=== PATIENT | female | born 1980 | race Caucasian/White ===

== ENCOUNTER 2023-10-30 01:21 | Emergency (ER) | payer OTHER, SELFPAY ==
[2023-10-30 01:27] VITALS: BP 126/87
--- NOTE | 2023-10-30 02:30 | ED.GENMED ---
Addendum entered and electronically signed by Kodi Macario DO 10/30/23 05:24:
Patient was seen in conjunction with the PA student. I have reviewed and agree with the history and treatment plan presented. On my independent physical exam, patient is awake, alert, and oriented x3, minimal acute distress. Heart is regular rate
rhythm. Lungs are clear to auscultation bilaterally without wheezes rales or rhonchi abdomen is soft and nontender. Oropharynx is clear with the exception of ulcers on the soft palate. There is also a lesion on the tongue. Uvula is midline.
Airway is patent. No stridor present.
Original Note:
History of Present Illness
<IJEOMA Sesay - Last Filed: 10/30/23 05:01>
General
Chief Complaint: Throat Problem
Source: patient
Exam Limitations: clinical condition
Time Seen by Provider: 10/30/23 01:59
Nursing documentation reviewed up to this point in time: agreed with
Travel History
Have you had any contact with someone who has COVID-19?: No
Do you have any symptoms of coronavirus? Fever > 100 degrees, chills, cough, shortness of breath, sore throat, loss of taste or smell, muscle aches, or headache?: Yes
Symptoms:: fever
History of Present Illness
History of Present Illness:
This is a 43 year old female with a PMH of anxiety, depression, endometriosis, and lyme disease, who presents to the ED c/o throat pain x 3 weeks. Pt states she was sick with RSV in August for around a month. She had a productive cough, fever and
SOB. Her symptoms resolved for around a week. 3 weeks ago she developed a sore throat with white patches that appeared on her tongue. She notes that her throat is extremely sore with eating, drinking, and talking and it feels as though there are
'needles in her throat'. She has brown dark spots that come and go on her tongue and the back of her throat. She notes that dairy makes her throat feel like 'fire'. She tried her friend's augmentin 3 days ago but that has not helped either. Her last
dose was yesterday morning. Pt has tried putting hot washcloths in her mouth but that has not helped either. She denies any CP, fever, chills, or weight loss. She denies any hx of cold sores.
History limited due to pt's condition.
Past History
<IJEOMA Sesay - Last Filed: 10/30/23 05:01>
Past History
ED Past Medical History: Psychiatric and Other (endometriosis, lyme )
Patient has exhibited threatening behavior?: No
Review of Systems
<IJEOMA Sesay - Last Filed: 10/30/23 05:01>
Review of Systems
Unable to obtain full review of systems at this time due to: other (clinical condition)
Constitutional: Denies fever, weight loss or chills
EENT: Reports sore throat and mouth pain
Respiratory: Reports no symptoms; Denies trouble breathing
Cardiac: Reports no symptoms; Denies chest pain
ABD/GI: Reports no symptoms; Denies abdominal pain
Musculoskeletal: Reports no symptoms
Skin: Reports other (ulcers and spots along lips)
Phy Exam
<IJEOMA Sesay - Last Filed: 10/30/23 05:01>
General Physical Exam
General Presentation: moderate distress
General age: appears stated age
General Skin: warm and dry
General Habitus: normal
General Mental: alert
General Hydration: appears well hydrated
ENT Exam
ENT Exam: neck supple (tenderness to palpation along L submandibular lymph node), normocephalic, pharyngeal erythema and other (unable to speak for prolonged periods of time due to pain, white patches along surface of tongue, 2 shallow ulcers noted
along posterior pharynx. 1 shallow ulcer along L solis border)
Eye Exam
Eye Exam: PERRL
Cardiovascular Exam
Cardiovascular Exam: regular rate/rhythm, no edema, no murmur and normal peripheral pulses
Pulmonary Exam
Pulmonary Exam: lungs clear, no respiratory distress, no crackles and no wheezing
Gastrointestinal Exam
Gastrointestinal Exam: normal bowel sounds, non tender, soft and non distended
Neurological Exam
Neurological Exam: alert and oriented x3
Musculoskeletal Exam
Musculoskeletal Exam: full ROM and no edema
Skin Exam
Skin Exam: normal color and warm/dry
Psychiatric Exam
Psychiatric Exam: normal mood/affect
Course
<IJEOMA Sesay - Last Filed: 10/30/23 05:01>
Orders/Labs/Results
Orders:
Orders
10/30/23 03:04
Viscous Lidocaine 2% [Xylocaine Viscous Cup] 15 ml PO NOW STA
10/30/23 03:18
Test Result ONCE
10/30/23 03:47
Complete Blood Count/With Diff Urgent
Fentanyl, Urine Urgent
Urinalysis Reflex To Culture Urgent
Date Specimen was Collected: 10/30/23
Time Specimen was Collected: 03:27
Urine Drug Abuse Screen Urgent
Date Specimen was Collected: 10/30/23
Time Specimen was Collected: 03:27
10/30/23 03:48
Comprehensive Metabolic Panel Urgent
HCG, Serum Qualitative Screen Urgent
10/30/23 03:52
0.9% Sodium Chloride 500 ml [Nss] 500 ml IV ONCE
10/30/23 04:02
Rapid Strep Group A Urgent
MARCUS Source: Throat/Pharynx
Specimen Description:
Date Specimen was Collected: 10/30/23
Time Specimen was Collected: 04:00
Abnormal Lab Results
10/30/23 10/30/23
03:47 03:48
RBC 3.70 L 10^6/uL
(4.20-5.40)
Hgb 11.0 L g/dL
(12.0-16.0)
Hct 32.3 L %
(37.0-47.0)
Absolute Monos (auto) 0.7 H 10^3/uL
(0.1-0.6)
Monocytes % 9.8 H %
(1.7-9.3)
Potassium 3.3 L mmol/L
(3.5-5.1)
Creatinine 0.4 L mg/dL
(0.6-1.0)
Urine Ketones Trace A
(Negative)
Ur Amphetamines Screen Positive H
(Negative)
U Methamphetamines Scrn Positive H
(Negative)
U Marijuana (THC) Screen Positive H
(Negative)
10/30/23 03:47
10/30/23 03:48
Vital Signs
Initial and Last Documented VS:
Initial Vital Signs
Temp Pulse Resp BP Pulse Ox
98.8 F 114 24 126/87 97
10/30/23 01:27 10/30/23 01:27 10/30/23 01:27 10/30/23 01:27 10/30/23 01:27
Last Documented Vital Signs
Temp Pulse Resp BP Pulse Ox
98.8 F 114 24 126/87 97
10/30/23 01:27 10/30/23 01:27 10/30/23 01:27 10/30/23 01:27 10/30/23 02:22
<Kodi Macario, DO - Last Filed: 10/30/23 04:42>
Orders/Labs/Results
Orders:
Orders
10/30/23 03:04
Viscous Lidocaine 2% [Xylocaine Viscous Cup] 15 ml PO NOW STA
10/30/23 03:18
Test Result ONCE
10/30/23 03:47
Complete Blood Count/With Diff Urgent
Fentanyl, Urine Urgent
Urinalysis Reflex To Culture Urgent
Date Specimen was Collected: 10/30/23
Time Specimen was Collected: 03:27
Urine Drug Abuse Screen Urgent
Date Specimen was Collected: 10/30/23
Time Specimen was Collected: 03:27
10/30/23 03:48
Comprehensive Metabolic Panel Urgent
HCG, Serum Qualitative Screen Urgent
10/30/23 03:52
0.9% Sodium Chloride 500 ml [Nss] 500 ml IV ONCE
10/30/23 04:02
Rapid Strep Group A Urgent
MARCUS Source: Throat/Pharynx
Specimen Description:
Date Specimen was Collected: 10/30/23
Time Specimen was Collected: 04:00
Abnormal Lab Results
10/30/23 10/30/23
03:47 03:48
RBC 3.70 L 10^6/uL
(4.20-5.40)
Hgb 11.0 L g/dL
(12.0-16.0)
Hct 32.3 L %
(37.0-47.0)
Absolute Monos (auto) 0.7 H 10^3/uL
(0.1-0.6)
Monocytes % 9.8 H %
(1.7-9.3)
Potassium 3.3 L mmol/L
(3.5-5.1)
Creatinine 0.4 L mg/dL
(0.6-1.0)
Urine Ketones Trace A
(Negative)
Ur Amphetamines Screen Positive H
(Negative)
U Methamphetamines Scrn Positive H
(Negative)
U Marijuana (THC) Screen Positive H
(Negative)
10/30/23 03:47
10/30/23 03:48
Vital Signs
Initial and Last Documented VS:
Initial Vital Signs
Temp Pulse Resp BP Pulse Ox
98.8 F 114 24 126/87 97
10/30/23 01:27 10/30/23 01:27 10/30/23 01:27 10/30/23 01:27 10/30/23 01:27
Last Documented Vital Signs
Temp Pulse Resp BP Pulse Ox
98.8 F 114 24 126/87 97
10/30/23 01:27 10/30/23 01:27 10/30/23 01:27 10/30/23 01:27 10/30/23 02:22
<IJEOMA Sesay - Last Filed: 10/30/23 05:01>
*Critical Care Note
Total Time (30-74mins, 75-104mins- exclusive of procedures): Not Applicable
<Kodi Macario DO - Last Filed: 10/30/23 04:42>
Update Note
Update Note:
Patient given resources on homelessness provided by [employer].
ED Attending Note
<IJEOMA Sesay - Last Filed: 10/30/23 05:01>
-
Portions of this chart may have been created with voice recognition software.� Occasional wrong word or��sound alike� substitutions may have occurred due to the inherent limitations of voice recognition software.
<Kodi Macario DO - Last Filed: 10/30/23 04:42>
ED Attending Note
Patient seen and examined by attending physician: Yes
I performed the substantive portion of visit, reviewed & personally made and approve the management plan that is documented in note by myself or NORMA.: Yes
I performed a history and physical exam of patient and discussed management with resident, I reviewed resident's note and agree with documented findings and plan of care.: Yes
ED Attending Note:
43-year-old female presents the emergency department with ulcers in her throat and tongue for the last 3 weeks. Patient states that ulcers are painful. The pain is exacerbated by dairy products. She has been taking Augmentin that she acquired
from a friend without relief. She presents tonight because she was unable to sleep. Patient states that she is homeless.
Discharge Plan
Departure
Patient Disposition: Home (Routine Discharge)
Date of Disposition: 10/30/23
Time of Disposition: 04:35
Patient with high blood pressure during this ER visit?: No
Condition: Good
Discharge Problem:
Lesion of mouth
Instructions: Mouth Sores (DC), BLOOD PRESSURE
Prescriptions:
New
lidocaine HCl [Lidocaine Viscous] 2 % solution
1 applic mucous membrane BID PRN (Reason: Pain) Qty: 100 0RF
nystatin 100,000 unit/mL suspension
1 ml PO DAILY 10 Days Qty: 10 0RF
Referrals:
[facility] [Outside]
[facility] [Outside]
Quirino Gates MD [Active] - As needed
NONE,* [Family Provider] -
Activity Restrictions/Additional Instructions:
Please use the resources given to find a place to stay
It was a pleasure meeting you and taking part in your care. We hope for your continued healing and wellness.
Please read discharge instructions in their entirety. However, they are for general education and may not describe your exact diagnosis at discharge. Information on your ER visit and medical conditions were discussed with you along with appropriate
follow up information...
If indicated, please take your medications as instructed and indicated on discharge paperwork.
Please schedule a follow up appointment as directed. Call to schedule an appointment
Please return to the emergency department with ANY change in, persisting, or worsening of symptoms. If any of your symptoms do not improve, or persist, or become more severe within 6-12 hours, please return to the emergency department for further
care.
Please return to the emergency department if you develop a headache, neck pain/stiffness, fever greater than 100.4F, chest pain, shortness of breath, persistent nausea, vomiting, slurred speech, difficulty walking, numbness/tingling, weakness, signs
of infection or any other symptoms that are worrisome to you.
If you have any questions or concerns please do not hesitate to call the Hospital at
Interventions
Interventions:
*Risk Screen - Suicide Last Done: 10/30/23 01:27
*General Assessment Last Done: 10/30/23 01:27
*Neglect/Abuse Screening Last Done: 10/30/23 01:27
ED- Fall Risk Assessment Last Done: 10/30/23 01:27
*ED COVID-19 Vaccine History Last Done: 10/30/23 01:27
ED-EENT Assessment Last Done: 10/30/23 02:22
ED- Pulmonary Assessment Last Done: 10/30/23 02:22
[2023-10-30] MEDS: XYLOCAINE VISCOUS CUP 15 ML PO (03:52)
[2023-10-30] MEDS: NSS 500 IV (03:53)
[2023-10-30 03:56] VITALS: BMI 19.5
[2023-10-30 03:56] LABS: % Basophils 0.9 % (0-2); % Eosinophils 1.1 % (0-6); % Immature Granulocytes 0.1 % (0-0.5); % Lymphocytes 23.6 % (20.5-51.1); % Monocytes 9.8 % (1.7-9.3); % Neutrophils 64.5 % (42.2-75.2); Absolute Basophils 0.1 10^3/uL (0-0.2); Absolute Eosinophils 0.1 10^3/uL (0-0.7); Absolute Lymphocytes 1.6 10^3/uL (1.2-3.4); Absolute Monocytes 0.7 10^3/uL (0.1-0.6); Absolute Neutrophils 4.5 10^3/uL (1.4-6.5); Hematocrit 32.3 % (37.0-47.0); Mean Corp Hgb Conc. 34.1 g/dL (33.0-37.0); Mean Corpuscular Hgb 29.7 pg (27.0-31.0); Mean Corpuscular Volume 87.3 fL (81.0-99.0); Mean Platelet Volume 9.6 fL (7.4-10.4); Nucleated Red Blood Cells % 0 %; Platelet Count 326 10^3/uL (130-400); Red Cell Dist. Width 14.5 % (11.5-14.5)
[2023-10-30 04:05] LABS: Urine Albumin Negative (Neg - Trace); Urine Bilirubin Negative (Negative); Urine Character Clear (Clear); Urine Color Yellow; Urine Glucose Negative (Negative); Urine Ketone Trace (Negative); Urine Leukocyte Negative (Negative); Urine Nitrite Negative (Negative); Urine Occult Blood Negative (Negative); Urine Specific Gravity 1.025 (<1.030); Urine Urobilinogen Negative (Neg - 1+)
[2023-10-30 04:11] LABS: ALT (SGPT) 13 U/L (0-35); AST (SGOT) 27 U/L (14-36); Albumin 3.8 g/dl (3.5-5.0); Alkaline Phosphatase 95 U/L (38-126); Blood Urea Nitrogen 14 mg/dl (7-17); Carbon Dioxide 22 mmol/L (22-30); Chloride 103 mmol/L (98-107); Estimated Creatinine Clearance 111 ml/min; Glucose 83 mg/dl (70-99); Potassium 3.3 mmol/L (3.5-5.1); Sodium 138 mmol/L (135-145); Total Bilirubin 0.8 mg/dl (0.2-1.3); Total Protein 6.6 g/dl (6.3-8.2); eGFR > 60.00
[2023-10-30 04:13] LABS: HCG, Serum Qualitative Screen Negative
[2023-10-30 04:26] LABS: Amphetamines Positive (Negative); Barbiturates Negative (Negative); Benzodiazepines Negative (Negative); Buprenorphine Negative (Negative); Cocaine Negative (Negative); Marijuana Positive (Negative); Methadone Negative (Negative); Methamphetamines Positive (Negative); Opiates Negative (Negative); Phencyclidine Negative (Negative); Tricyclic Antidepressants Negative (Negative)
[2023-10-30 04:47] LABS: Fentanyl, Urine Negative (Negative)
--- NOTE | 2023-10-30 05:19 | ED.GENMED ---
History of Present Illness
General
Chief Complaint: Throat Problem
Time Seen by Provider: 10/30/23 01:59
Travel History
Have you had any contact with someone who has COVID-19?: No
Do you have any symptoms of coronavirus? Fever > 100 degrees, chills, cough, shortness of breath, sore throat, loss of taste or smell, muscle aches, or headache?: Yes
Symptoms:: fever
Past History
Past History
ED Past Medical History: Psychiatric and Other (endometriosis, lyme )
Patient has exhibited threatening behavior?: No
Course
Orders/Labs/Results
Orders:
Orders
10/30/23 03:04
Viscous Lidocaine 2% [Xylocaine Viscous Cup] 15 ml PO NOW STA
10/30/23 03:18
Test Result ONCE
10/30/23 03:47
Complete Blood Count/With Diff Urgent
Fentanyl, Urine Urgent
Urinalysis Reflex To Culture Urgent
Date Specimen was Collected: 10/30/23
Time Specimen was Collected: 03:27
Urine Drug Abuse Screen Urgent
Date Specimen was Collected: 10/30/23
Time Specimen was Collected: 03:27
10/30/23 03:48
Comprehensive Metabolic Panel Urgent
HCG, Serum Qualitative Screen Urgent
10/30/23 03:52
0.9% Sodium Chloride 500 ml [Nss] 500 ml IV ONCE
10/30/23 04:02
Rapid Strep Group A Urgent
MARCUS Source: Throat/Pharynx
Specimen Description:
Date Specimen was Collected: 10/30/23
Time Specimen was Collected: 04:00
Abnormal Lab Results
10/30/23 10/30/23
03:47 03:48
RBC 3.70 L 10^6/uL
(4.20-5.40)
Hgb 11.0 L g/dL
(12.0-16.0)
Hct 32.3 L %
(37.0-47.0)
Absolute Monos (auto) 0.7 H 10^3/uL
(0.1-0.6)
Monocytes % 9.8 H %
(1.7-9.3)
Potassium 3.3 L mmol/L
(3.5-5.1)
Creatinine 0.4 L mg/dL
(0.6-1.0)
Urine Ketones Trace A
(Negative)
Ur Amphetamines Screen Positive H
(Negative)
U Methamphetamines Scrn Positive H
(Negative)
U Marijuana (THC) Screen Positive H
(Negative)
10/30/23 03:47
10/30/23 03:48
Vital Signs
Initial and Last Documented VS:
Initial Vital Signs
Temp Pulse Resp BP Pulse Ox
98.8 F 114 24 126/87 97
10/30/23 01:27 10/30/23 01:27 10/30/23 01:27 10/30/23 01:27 10/30/23 01:27
Last Documented Vital Signs
Temp Pulse Resp BP Pulse Ox
98.8 F 114 24 126/87 97
10/30/23 01:27 10/30/23 01:27 10/30/23 01:27 10/30/23 01:27 10/30/23 02:22
ED Attending Note
ED Attending Note
Patient seen and examined by attending physician: Yes
I performed the substantive portion of visit, reviewed & personally made and approve the management plan that is documented in note by myself or NORMA.: Yes
I performed a history and physical exam of patient and discussed management with resident, I reviewed resident's note and agree with documented findings and plan of care.: Yes
-
Portions of this chart may have been created with voice recognition software.� Occasional wrong word or��sound alike� substitutions may have occurred due to the inherent limitations of voice recognition software.
Discharge Plan
Departure
Patient Disposition: Home (Routine Discharge)
Date of Disposition: 10/30/23
Time of Disposition: 04:35
Patient with high blood pressure during this ER visit?: No
Condition: Good
Discharge Problem:
Lesion of mouth
Instructions: Mouth Sores (DC), BLOOD PRESSURE
Prescriptions:
New
lidocaine HCl [Lidocaine Viscous] 2 % solution
1 applic mucous membrane BID PRN (Reason: Pain) Qty: 100 0RF
nystatin 100,000 unit/mL suspension
1 ml PO DAILY 10 Days Qty: 10 0RF
ibuprofen [Motrin IB] 200 mg tablet
600 mg PO Q6H Qty: 30 0RF
Referrals:
[facility] [Outside]
[facility] [Outside]
Quirino Gates MD [Active] - As needed
NONE,* [Family Provider] -
Activity Restrictions/Additional Instructions:
Please use the resources given to find a place to stay
It was a pleasure meeting you and taking part in your care. We hope for your continued healing and wellness.
Please read discharge instructions in their entirety. However, they are for general education and may not describe your exact diagnosis at discharge. Information on your ER visit and medical conditions were discussed with you along with appropriate
follow up information...
If indicated, please take your medications as instructed and indicated on discharge paperwork.
Please schedule a follow up appointment as directed. Call to schedule an appointment
Please return to the emergency department with ANY change in, persisting, or worsening of symptoms. If any of your symptoms do not improve, or persist, or become more severe within 6-12 hours, please return to the emergency department for further
care.
Please return to the emergency department if you develop a headache, neck pain/stiffness, fever greater than 100.4F, chest pain, shortness of breath, persistent nausea, vomiting, slurred speech, difficulty walking, numbness/tingling, weakness, signs
of infection or any other symptoms that are worrisome to you.
If you have any questions or concerns please do not hesitate to call the Hospital at
Interventions
Interventions:
*Risk Screen - Suicide Last Done: 10/30/23 01:27
*General Assessment Last Done: 10/30/23 01:27
*Neglect/Abuse Screening Last Done: 10/30/23 01:27
ED- Fall Risk Assessment Last Done: 10/30/23 01:27
*ED COVID-19 Vaccine History Last Done: 10/30/23 01:27
ED-EENT Assessment Last Done: 10/30/23 02:22
ED- Pulmonary Assessment Last Done: 10/30/23 02:22
== END 2023-10-30 05:31 | disposition home or self-care (01) ==
LOC: EMR 01:21
PROVIDERS: EMERGENCY PHYSICIAN Student in an Organized Health Care Education/Training Program
DX: K13.79 Other lesions of oral mucosa (principal)
CPT/HCPCS: 99284; 80053; 80306; 80307; 81003; 84703; 85025; 87070; 87880